=== PATIENT | male | born 2000 | race Caucasian/White ===

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

== ENCOUNTER → 2021-04-15 11:06 | Outpatient (CLI) | payer MEDICAID, SELFPAY ==
--- NOTE | 2021-04-15 11:28 | XR_ITS ---
PROCEDURE: XR CHEST 2V CLINICAL HISTORY: CHEST PAIN COMPARISON: CR CXR CHEST(2 VIEWS-NOT PORTABLE) from 05/30/2011 FINDINGS: The cardiomediastinal silhouette and pulmonary vascularity are within normal limits. The lungs are clear without infiltrates, suspicious nodules, or pleural effusions. No acute bony abnormalities. IMPRESSION: No acute findings. Dictated by: Hardik Heller MD 04/15/2021 12:09 Hardik Heller MD in [place] 04/15/2021 12:09
[2021-04-15 11:35] LABS: Basophils % 0.6 % (0.1-2.0); Eosinophils # 0.1 K/mm3 (0.0-0.4); Eosinophils % 2.1 % (0.1-12.0); Hematocrit 44.8 % (42.0-52.0); Hemoglobin 15.8 g/dL (14.1-18.0); Lymphocytes # 2.6 K/mm3 (0.7-4.5); Lymphocytes % 43.2 % (10-50); Mean Corpuscular HGB Conc 35.3 g/dL (31.8-35.4); Mean Corpuscular Hemoglobin 31.3 pg (27.0-31.2); Mean Corpuscular Volume 88.6 fl (80-94); Mean Platelet Volume 8.4 fl (7.4-10.4); Monocytes # 0.4 K/mm3 (0.1-1.0); Monocytes % 6.7 % (1.7-9.3); Neutrophils # 2.8 K/mm3 (1.8-7.8); Neutrophils % 47.4 % (37.0-80.0); Platelet Count 211 K/mm3 (142-424); Red Blood Count 5.05 M/mm3 (4.60-6.20); Red Cell Distribution Width 12.7 % (11.5-17.5)
[2021-04-15 12:15] LABS: Alanine Aminotransferase 21 U/L (12-78); Albumin Level 4.5 g/dl (3.5-5.0); Albumin/Globulin Ratio 1.8 (1.1-1.8); Alkaline Phosphatase 66 U/L (38-126); Anion Gap 10.4 mEq/L (5-15); Aspartate Amino Transferase 22 U/L (17-59); Bilirubin,Total 0.7 mg/dl (0.2-1.3); Blood Urea Nitrogen 22 mg/dl (9-20); Calcium 9.2 mg/dl (8.4-10.2); Carbon Dioxide 26 mmol/L (22.0-30.0); Chloride 106 mmol/L (98-107); Estimated Glomerular Filt Rate 96 ml/min (>60); GFR (African American) 116 ML/MIN (>60); Globulin 2.5 g/dL (1.3-3.2); Glucose 90 mg/dl (74-100); Magnesium 2.1 mg/dl (1.6-2.3); Potassium 4.4 mmoL/L (3.5-5.1); Sodium 138 mmol/L (136-145)
[2021-04-15 12:23] LABS: C-Reactive Protein < 0.3 mg/L (0-4); Erythrocyte Sedimentation Rate 11 mm/hr (0-15)
[2021-04-15 12:29] LABS: Troponin I < 0.01 ng/ml (0.00-0.034)
[2021-04-15 12:31] LABS: Coronavirus 19 IgG Antibody Negative (Negative); Coronavirus 19 IgM Antibody Negative (Negative)
== END ==
PROVIDERS: Visit Provider Internal Medicine Adolescent Medicine
DX: Z20.822 Contact with and (suspected) exposure to COVID-19 (principal); R07.89 Other chest pain
CPT/HCPCS: 36415; 71046; 80053; 83735; 84484; 85025; 85651; 86140; 86328

== ENCOUNTER → 2021-04-24 14:26 | Outpatient (CLI) | payer MEDICAID, SELFPAY ==
--- NOTE | 2021-04-24 | CA_ITS ---
APPROVED REPORT EXAM: Comprehensive 2D, Doppler, and color-flow Echocardiogram Stock Sheets Cleaner Inspector: Mary Ellis RT(R) Ht: 5 ft 10 in Wt: 182lbs BSA: 2.01 BP: 100/52 mmHg Indications: CP 2D Dimensions LVOT 2.09 cm (M/F) 1.5-2.5 LA Volume 32.90 mL LA Volume Index 16.45 mL/m2 (M/F) 16-34 M-Mode Dimensions RVDd 3.19 cm (0.9-2.6) LVDd 5.05 cm (3.5-5.7) LVDs 3.44 cm (3.5-5.7) IVSd 0.84 cm (0.6-1.1) PWd 0.63 cm (0.6-1.1) EF (Teich) 59.70% FS 31.90% EDV (Teich) 121.00 mL ESV (Teich) 48.80 mL LV Diastology E Decel Time 253.00 (160-240 msec) E/A Ratio 1.5 MED E' 10.50 (< 7 cm/sec) E'/MED E' Ratio 6.94 (>14) LAT E' 17.50 (<10 cm/sec) E/LAT E' Ratio 4.17 (>14) Mitral Valve MV E Max Ken. 73.00 (40-130 cm/s) MV A Velocity 50.00 (40-130 cm/s) E/A Ratio 1.46 MV Decel. Time 253.00 (160-240 ms) MV PHT 74.00 ms Pulmonary Valve PV Peak Velocity 147.00 (50-150 cm/s) Left Ventricle Left atrium is normal size, left ventricle is normal size, there is no concentric left ventricular hypertrophy, visually estimated ejection fraction 55% with no regional wall motion abnormality, diastolic parameters are within normal range. Right Ventricle Right atrium and right ventricle are normal size and contractility. Aortic Valve Aortic valve is grossly normal, there is no aortic stenosis or aortic insufficiency. Mitral Valve Mitral valve is grossly normal, there is trace mitral regurgitation. Tricuspid Valve Tricuspid grossly normal, there is trace tricuspid regurgitation, tricuspid regurgitation jet velocity is inadequate for calculation of the right ventricular systolic pressure. Pulmonic Valve Pulmonic valve is poorly visualized. Great Vessels Aortic root is normal size. Pericardium No significant pericardial effusion noted. Conclusion 1. Normal left ventricular size, preserved left ventricular systolic function, visually estimated ejection fraction 55% with no regional wall motion abnormality, diastolic parameters are within normal range. 2. Trace mitral and tricuspid regurgitation. 3. No significant pericardial effusion noted. Electronically signed by : Efrain Wang, 04/25/2021 15:31:10
== END ==
PROVIDERS: PCP Internal Medicine Adolescent Medicine; Visit Provider Internal Medicine Adolescent Medicine
DX: R07.89 Other chest pain (principal)
CPT/HCPCS: 93306

== ENCOUNTER 2024-02-07 06:21 | Emergency (ER) | payer OTHER, SELFPAY ==
[2024-02-07] VITALS (7 sets, daily range): BP systolic 96–124; BP diastolic 61–76; PULSE 68–77; RESP 16; TEMP 36.9; O2SAT 96–99; BMI 27.9
--- NOTE | 2024-02-07 06:30 | XR_ITS ---
PROCEDURE INFORMATION: Exam: XR Right Foot Exam date and time: 02/07/2024 6:28 AM Age: 23 years old Clinical indication: Injury or trauma; Fall; Work related; Blunt trauma; Foot; Right; Additional info: Sprained right ankle and foot. TECHNIQUE: Imaging protocol: Radiologic exam of the right foot. Views: 3 or more views. COMPARISON: No relevant prior studies available. FINDINGS: Bones/joints: Normal. Soft tissues: Normal. IMPRESSION: No acute findings.
--- NOTE | 2024-02-07 06:30 | XR_ITS ---
PROCEDURE INFORMATION: Exam: XR Right Ankle Exam date and time: 02/07/2024 6:31 AM Age: 23 years old Clinical indication: Injury or trauma; Fall; Work related; Blunt trauma; Ankle; Right; Additional info: Sprained right ankle TECHNIQUE: Imaging protocol: Radiologic exam of the right ankle. Views: 3 or more views. COMPARISON: CR XR FOOT RT MIN 3V 02/07/2024 6:28 AM FINDINGS: Bones/joints: Normal. Soft tissues: There is lateral soft tissue swelling. IMPRESSION: Soft tissue swelling of the right ankle.
--- NOTE | 2024-02-07 06:37 | ED_ITS ---
Discharge Plan Disposition Patient Disposition: Home, Self-Care Condition: Good Prescriptions Prescriptions: New naproxen 500 mg tablet 500 mg PO BID Qty: 20 0RF Referrals Follow up/Referrals: Geoffrey Donovan DO [Staff Physician] - See instructions Jersey Chiang MD [Primary Care Provider] - See instructions Activity Restrictions/Add. Instructions Additional Instructions/Restrictions: You were evaluated in the emergency department today. Please follow-up closely with your primary care provider as well as orthopedics for further evaluation and management. They can fill out your Workmen's Comp. paperwork for you. Return to the emergency department for new or worsening symptoms. Use the walking boot and crutches provided to you as needed for improvement. 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 Clinical Impressions Clinical Impression: Strain of ankle, right Qualifiers: Encounter type: initial encounter Qualified Code(s): S96.911A - Strain of unspecified muscle and tendon at ankle and foot level, right foot, initial encounter Stand Alone Forms Stand Alone Forms: Work/School Release Instructions Patient Instructions: DI for Ankle Sprain, DI for Ankle Pain Discharge ED Provider: Jaquelin Whitman General Adult HPI <Alexis Grimaldo MD - Last Filed: 02/07/24 06:46> General Chief complaint: Extremity Injury, Lower Stated complaint: AO [id number] right ankle pain Time Seen by Provider: 02/07/24 06:30 Mode of Arrival: Wheelchair Source of Information: Patient Limitations: No Limitations Description of Symptoms (Recalled from ER Triage Doc. by RN): 23 YO MALE PRESENTS WITH RLE EDEMA BOTH MEDIALLY AND LATERALLY FOLLOWING AN EPISODE OF FALLING DOWN 1 STAIR. PREVIOUS HISTORY INCLUDES A TIB/FIB BREAK ON THE SAME SIDE. WORKER'S COMP History of Present Illness HPI narrative: This is a 23-year-old male with previous history of injury to the right ankle not necessitating surgery presenting with right ankle sprain. Patient states he was getting out of work when he stepped off a step wrong, injured his right ankle by spraining it. It inverted. Had immediate pain and swelling. Able to bear weight, significant pain with this. Came to the emergency department for further evaluation. Has not taken any medication for the pain. Is primarily medial, does not radiate. Please note that above description of symptoms, in this electronic medical record under categorization of recalled from ER triage doctor by RN are reflective of an initial nursing assessment, however, is not reflective of my full history and physical exam that was personally taken and clarified. Consequentially, this preceding description of symptoms, which may include the patient's categorized chief complaint in the EMR, do not reflect my personal clinical impression, and the ultimate description of history of present illness and patient stated complaints should be deferred to this section of the note. Unless stated otherwise or congruent with this section of the note, additional signs, symptoms, or incongruence should be interpreted as inaccurate with my clinical impression. Related Data Previous Rx's Medication Instructions Recorded naproxen 500 mg tablet 500 mg PO BID #20 tabs 02/07/24 Allergies Allergy/AdvReac Type Severity Reaction Status Date / Time No Known Allergies Allergy Verified 08/10/20 12:45 PFS <Alexis Grimaldo MD - Last Filed: 02/07/24 06:46> [facility] Disclaimer: The information contained in this section may have been updated after the patient was seen, as this information can be updated by other users. Social History Smoking Status: Unknown if ever smoked alcohol intake: never substance use type: denies use current occupational status: student Travel in the last 8 weeks: None household members: family housing: house <Alexis Grimaldo MD - Last Filed: 02/07/24 06:46> ROS Obtained: Yes All systems reviewed & no additional complaints except as documented Physical Exam <Alexis Grimaldo MD - Last Filed: 02/07/24 06:46> General General appearance: alert and in no apparent distress Head Head exam: atraumatic and normocephalic Eye Eye exam: Present normal appearance, PERRL and EOMI ENT ENT exam: Present mucous membranes moist Neck Neck exam: Present normal inspection, full ROM and trachea midline Respiratory Respiratory exam: Absent respiratory distress, wheezes, stridor, accessory muscle use or prolonged expiratory phase Cardiovascular Cardiovascular exam: Present normal rhythm Abdominal Exam Abdominal exam: Present soft; Absent distention, tenderness, guarding, rebound or rigidity Extremities Exam Extremities exam: Present tenderness, edema and other (right ankle, no obvious deformity. bilateral malleoli. large effusion) Neurological Exam Neurological exam: Present alert, oriented X3, CN II-XII intact and normal gait; Absent motor sensory deficit Skin Skin exam: Present warm and dry; Absent diaphoresis or erythema Medical Decision Making <Alexis Grimaldo MD - Last Filed: 02/07/24 06:46> Medical Records Medical records reviewed: Yes I reviewed the patient's medical records. Harvey Inquiry Pt receiving controlled substance: No Harvey was queried for this patient: No Vital Signs: 02/07/24 06:28 02/07/24 07:00 02/07/24 07:40 Temperature 98.4 F Temperature Source Oral Pulse Rate 77 74 Pulse Rate [Right Brachial] 68 Respiratory Rate 16 Blood Pressure 108/73 L 112/76 Blood Pressure [Right Arm] 124/75 Blood Pressure Mean 87 Blood Pressure Mean [Right Arm] 91 Blood Pressure Source [Right Arm] Automatic Cuff Blood Pressure Position [Right Arm] Sitting 02 Sat by Pulse Oximetry 99 98 98 Oxygen Delivery Method Room Air Room Air 02/07/24 08:00 02/07/24 08:30 02/07/24 08:53 Temperature Temperature Source Pulse Rate 71 75 77 Pulse Rate [Right Brachial] Respiratory Rate Blood Pressure 115/72 96/61 L 112/69 Blood Pressure [Right Arm] Blood Pressure Mean Blood Pressure Mean [Right Arm] Blood Pressure Source [Right Arm] Blood Pressure Position [Right Arm] 02 Sat by Pulse Oximetry 98 96 96 Oxygen Delivery Method Room Air Room Air Orders (Tests/Meds): ED MEDICATIONS Discontinued Medications Generic Name Dose Route Start Last Admin Trade Name Ezequiel PRN Reason Stop Dose Admin Acetaminophen 1,000 mg 02/07/24 06:31 02/07/24 07:07 Acetaminophen 500mg Tab PO 02/07/24 06:32 1,000 mg ONCE ONE Administration Ibuprofen 600 mg 02/07/24 06:31 02/07/24 07:07 Ibuprofen 600 Mg Tablet PO 02/07/24 06:32 600 mg ONCE ONE Administration ORDERS Category Date Time Status Ankle XR -Right minimum 3 Views [XR ankle RT min 3V] Exams 02/07/24 06:30 Completed Stat Foot XR right minimum 3 views [XR foot RT min 3V] Stat Exams 02/07/24 06:30 Completed Medical Decision Narrative: This is a 23-year-old male with history of previous right ankle injury not necessitating surgery presenting with right ankle pain. He states that just before arrival, he was walking, twisted his ankle on a step. Had immediate pain and swelling. It is moderate in intensity, primarily on the medial aspect of his ankle. Associated with swelling. Has not taken anything for the pain.. History was obtained via conversation with patient. On arrival, patient hemodynamically stable, alert, oriented x4, appropriate, GCS 15, moving all extremities spontaneously, pupils equal and reactive to light. Full physical exam performed and significant for tenderness, swelling about right ankle. Medial and lateral malleolus tender. No foot tenderness. Neurovascularly intact. Range of motion limited secondary to pain. Obvious ankle effusion without obvious deformity. Differential includes fracture, sprain, strain, dislocation, among others. Patient was given Tylenol Motrin p.o. for symptomatic management and correction of underlying abnormalities. Workup independently interpreted and significant for. See radiology read for full review of final results. Prior to imaging and disposition, care handed off to oncoming physician. <Jaquelin Whitman, - Last Filed: 02/07/24 09:00> Vital Signs: 02/07/24 06:28 02/07/24 07:00 02/07/24 07:40 Temperature 98.4 F Temperature Source Oral Pulse Rate 77 74 Pulse Rate [Right Brachial] 68 Respiratory Rate 16 Blood Pressure 108/73 L 112/76 Blood Pressure [Right Arm] 124/75 Blood Pressure Mean 87 Blood Pressure Mean [Right Arm] 91 Blood Pressure Source [Right Arm] Automatic Cuff Blood Pressure Position [Right Arm] Sitting 02 Sat by Pulse Oximetry 99 98 98 Oxygen Delivery Method Room Air Room Air 02/07/24 08:00 02/07/24 08:30 02/07/24 08:53 Temperature Temperature Source Pulse Rate 71 75 77 Pulse Rate [Right Brachial] Respiratory Rate Blood Pressure 115/72 96/61 L 112/69 Blood Pressure [Right Arm] Blood Pressure Mean Blood Pressure Mean [Right Arm] Blood Pressure Source [Right Arm] Blood Pressure Position [Right Arm] 02 Sat by Pulse Oximetry 98 96 96 Oxygen Delivery Method Room Air Room Air Orders (Tests/Meds): ED MEDICATIONS Discontinued Medications Generic Name Dose Route Start Last Admin Trade Name Freq PRN Reason Stop Dose Admin Acetaminophen 1,000 mg 02/07/24 06:31 02/07/24 07:07 Acetaminophen 500mg Tab PO 02/07/24 06:32 1,000 mg ONCE ONE Administration Ibuprofen 600 mg 02/07/24 06:31 02/07/24 07:07 Ibuprofen 600 Mg Tablet PO 02/07/24 06:32 600 mg ONCE ONE Administration ORDERS Category Date Time Status Ankle XR -Right minimum 3 Views [XR ankle RT min 3V] Exams 02/07/24 06:30 Completed Stat Foot XR right minimum 3 views [XR foot RT min 3V] Stat Exams 02/07/24 06:30 Completed Medical Decision Narrative: This is a 23-year-old male with history of previous right ankle injury not necessitating surgery presenting with right ankle pain. He states that just before arrival, he was walking, twisted his ankle on a step. Had immediate pain and swelling. It is moderate in intensity, primarily on the medial aspect of his ankle. Associated with swelling. Has not taken anything for the pain.. History was obtained via conversation with patient. On arrival, patient hemodynamically stable, alert, oriented x4, appropriate, GCS 15, moving all extremities spontaneously, pupils equal and reactive to light. Full physical exam performed and significant for tenderness, swelling about right ankle. Medial and lateral malleolus tender. No foot tenderness. Neurovascularly intact. Range of motion limited secondary to pain. Obvious ankle effusion without obvious deformity. Differential includes fracture, sprain, strain, dislocation, among others. Patient was given Tylenol Motrin p.o. for symptomatic management and correction of underlying abnormalities. Workup independently interpreted and significant for. See radiology read for full review of final results. Prior to imaging and disposition, care handed off to oncoming physician. DO J Carlos: I independently interpreted x-ray prior to radiology read and noted no acute fracture, however patient does have soft tissue swelling. Patient does have significant amount of swelling, some concern for ligamentous strain/sprain. I advised that he can return to work with sedentary work until cleared by orthopedics/his primary care provider to return to extensive work with weightbearing on his right lower extremity. He is given a walking boot and crutches for supportive management as well as a prescription for naproxen. At this time, he is deemed to be appropriate for discharge home. Strict return precautions and instructions for supportive management and outpatient follow-up were given. Critical Care <Alexis Grimaldo MD - Last Filed: 02/07/24 06:46> Critical Care Time Critical Care Time: No
[2024-02-07] MEDS: ACETAMINOPHEN 500MG TAB 1000 MG PO (07:07)
[2024-02-07] MEDS: IBUPROFEN 600 MG TABLET PO (07:07)
--- NOTE | 2024-02-07 07:40 | PC.NURSE ---
Called radiology to check on the status, states it is assigned but not in reading mode. [facility] has estimate time of 90-180min. aware.
--- NOTE | 2024-02-07 07:52 | PC.NURSE ---
I updated pt that we are waiting on his radiology reads. No new complaints voiced. Pt states he does not need anything at this time.
--- NOTE | 2024-02-07 07:53 | PC.NURSE ---
updated pt that we are waiting on xray to be read
--- NOTE | 2024-02-08 22:39 | PC.NURSE ---
Chart accessed for ortho paperwork
== END 2024-02-07 09:04 | disposition home or self-care (01) ==
PROVIDERS: Emergency Provider Emergency Medicine; PCP Internal Medicine Adolescent Medicine
DX: S96.911A Strain of unspecified muscle and tendon at ankle and foot level, right foot, initial encounter (principal); W10.8XXA Fall (on) (from) other stairs and steps, initial encounter
CPT/HCPCS: 73610; 73630; 99284